=== PATIENT | female | born 1990 | race Caucasian/White ===

== ENCOUNTER 2018-12-07 23:05 | Emergency (ER) | payer MEDICAID ==
[~2018-12-07] VITALS: Ht 154.9 cm; Wt 98.9 kg
[2018-12-07 23:27] VITALS: BP 129/71
--- NOTE | 2018-12-07 23:29 | NUR ---
PT AMBULATED TO BED WITH FAMILY/FRIEND
--- NOTE | 2018-12-07 23:30 | NUR ---
DR CRUMP MADE AWARE OF PT CONDITION
--- NOTE | 2018-12-07 23:40 | NUR ---
DR CRUMP AT BEDSIDE FOR MSE
[2018-12-07] MEDS ORDERED: ACYCLOVIR 200 MG CAP PO ONE (23:45)
[2018-12-07] MEDS ORDERED: KETOROLAC 30 MG/ML VIAL IM ONE (23:45)
[2018-12-07] MEDS ORDERED: predniSONE 20 MG TAB PO ONE (23:45)
--- NOTE | 2018-12-07 23:47 | NUR ---
DR. CRUMP EVALUATING AT BEDSIDE.
--- NOTE | 2018-12-07 23:50 | NUR ---
28 YO F BIB SELF AND BOYFRIEND PRESENTS TO ED C/O 8/ PAIN BEHIND RIGHT EAR RADIATING TO RIGHT SIDE NECK THAT STARTED THIS MORNING ACCOMPANIED BY R FACIAL DROOP. FACIAL ASYMETRY NOTED TO RIGHT SIDE. EQUAL STRENGTH NOTED TO BILATERAL EXTREMETIES. SPEECH IS CLEAR. 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 -- PT AWAKE, A/O X 4. NO MEMORY DEFECITS NOTED. CALM, COOPERATIVE. ANSWERS QUESTIONS APPROPRIATELY. BEHAVIOR AGE APPROPRIATE. -- SKIN PINK, WARM, DRY. BREATHING EVEN, UNLABORED. PMH-- HARMAN'S PALSY RX-- DENIES
[2018-12-08 00:22] VITALS: BP 126/69
--- NOTE | 2018-12-08 00:22 | NUR ---
Patient discharged with v/s stable. Written and verbal after care instructions given and explained. Patient alert, oriented and verbalized understanding of instructions. Ambulatory with steady gait. All questions addressed prior to discharge. ID band removed. Patient advised to follow up with PMD. Rx of Naproxen, Valtrex and Prednisone given. Patient educated on indication of medication including possible reaction and side effects. Opportunity to ask questions provided and answered.
== END 2018-12-08 00:22 | disposition home or self-care (01) ==
LOC: MED 23:05
DX: G51.0 Bell's palsy (principal)
CPT/HCPCS: 96372; 99283; J1885; J7512